=== PATIENT | female | born 1955 | race Caucasian/White ===

== ENCOUNTER 2018-01-09 21:11 | Emergency (ER) | payer OTHER, MEDICAID, SELFPAY | END 2018-01-10 01:05 | disposition home or self-care (01) | PROVIDERS: Emergency Provider Emergency Medicine; Family Provider Family Medicine; PCP Family Medicine; Visit Provider Emergency Medicine | DX: S89.92XA Unspecified injury of left lower leg, initial encounter (principal); X58.XXXA Exposure to other specified factors, initial encounter | CPT/HCPCS: 29505; 73562; 99283 ==

== ENCOUNTER 2018-05-22 11:52 | Day surgery (SDC) | payer OTHER, MEDICAID, SELFPAY ==
[2018-05-22] VITALS (7 sets, daily range): BP systolic 99–109; BP diastolic 62–77; PULSE 63–71; RESP 13–20; TEMP 36.1–36.6; O2SAT 93–99; BMI 30.4
--- NOTE | 2018-05-22 | PATH_ITS ---
[facility] Accession Number: [id number] . 01 Material submitted: . PART A: ANTRAL BIOPSY PART B: GE JUNCTION . 02 Diagnosis: A. Antrum, Biopsy: Gastric antral mucosa with no diagnostic abnormality. No evidence of Helicobacter organisms on H/E stain. Negative for intestinal metaplasia, dysplasia or malignancy. . B. Gastroesophageal Junction, Biopsy: Squamocolumnar junctional mucosa with mild reactive features of reflux esophagitis. No evidence of fungal organisms on PAS stain. Negative for specialized intestinal metaplasia on alcian blue stain. Negative for dysplasia or malignancy. [facility]/05/28/2018 . 02 Electronically signed: . Richard Webber MD, PhD, Pathologist NPI- [id number] . 01 Gross description: . Part A: ANTRAL BIOPSY: Received in formalin are multiple fragment(s) of negro, soft tissue measuring 0.4 x 0.3 x 0.2 cm in aggregate submitted entirely in 1 cassette(s) Part B: GE JUNCTION: Received in formalin are multiple fragment(s) of negro, soft tissue measuring 0.5 x 0.3 x 0.2 cm in aggregate submitted entirely in 1 cassette(s) /CKI /CKI . 02 Microscopic: . Part B: An alcian blue/PAS stain is performed to evaluate for intestinal metaplasia and is negative for goblet cells. A control stain shows appropriate reactivity. There is no evidence of fungal organisms on PAS stain. . 02 Pathologist provided ICD-10: K21.0 . 02 CPT . 515413, [id number], [id number] Performed at: 01 [facility] [address] [place] [address] [address], [place], [place] [id number] MD Hollis Diop MD Phone: [phone] Performed at: 02 [facility] [place] [address] [place] [id number] MD Alfredo Soriano MD Phone: [phone]
[2018-05-22] MEDS: SODIUM CHLORIDE 0.9% 1,000 ML 200 ML IV (12:20)
--- NOTE | 2018-05-22 13:38 | PM.PREOP ---
Pre-operative Note Interval Note Pre-op Check: Yes History & Physical Reviewed by Physician and Yes Exam Performed Changes: No H&P completed within 30 days and has changed as indicated here:: Patient seen and examined today. History physical examination documented April 21, 2018 on the chart has not changed. We will proceed with EGD and biopsy as planned today. ASA Class (for procedural sedation): II
--- NOTE | 2018-05-22 13:52 | PM.OP.ENDO ---
Operative Date/Time/Diagnoses Date of procedure: 05/22/18 Time of procedure: 13:52 Pre-op diagnosis: Epigastric pain and regurgitation Post-op diagnosis: other (Gastritis and esophagitis) Procedure & Clinicians Study performed: 1. Esophagogastroduodenoscopy with cold forceps biopsies 2. Sedation per surgeon Same procedure as scheduled: Yes Indications: 62-year-old female with recent progressive epigastric pain and regurgitation of food substances consistent with uncontrolled reflux disease despite medical management. EGD with biopsy was recommended. Surgeon: Irvin Mcmillan Procedure Notes SCOAP/Timeout: Yes Procedure in detail: After obtaining informed consent, the patient was brought to the GI suite and placed in the left lateral decubitus position on the examination table. After placement of appropriate monitors, the patient was given incremental doses of Versed and Fentanyl until an appropriate level of sedation was achieved. A time out was held per SCOAP protocol. A bite block was gently placed between the patient's teeth. The endoscope was lubricated and then passed into the patient's posterior oropharynx. The esophagus was cannulated under direct vision and the scope was passed to the second portion of the duodenum without difficulty. Patient had retained solid food particles in the stomach and duodenum although she had been NPO status for approximately 14 hr prior to the procedure. The scope was then withdrawn with careful examination of all areas of the upper GI tract and mucosa. In the stomach, the instrument was retroflexed and the GE junction examined. The scope was straightened and the procedure continued with examination of the remainder of the upper GI tract. Findings are noted above. Air was aspirated from the stomach and the endoscope gently removed from the esophagus. The patient was allowed to awaken from sedation without difficulty and taken to the post-anesthesia care unit in good condition. Scope withdrawal time: Not applicable Sedation minutes: 15 Findings: gastritis, hiatal hernia (Small) and other findings (Esophagitis at gastroesophageal junction only with Z-line at 35 cm from incisors) Specimen(s): other (1. Antral biopsies 2. Gastroesophageal junction biopsies) Complications: none Recommendations: Reflux diet, No ASA/NSAIDS and Continue medication(s) Plan for aftercare: 1. Discharge home 2. Follow up in surgery Clinic in 2 weeks 3. She had retained solid food particles in the stomach and duodenum possibly consistent with delayed gastric emptying. She will require gastric emptying study in nuclear medicine. Follow up: weeks (Two weeks) Disposition: PACU
[2018-05-22] MEDS: LIDOCAINE 4% SOLN 50 ML 20 ML TOP (13:57)
[2018-05-22] MEDS: fentaNYL 250 MCG/5 ML INJ IV (13:58)
--- NOTE | 2018-05-22 14:39 | SUR.PHASEII ---
PT ARRIVED TO PHASE II VIA STRETCHER. PT SITTING UP AND APPEARS COMFORTABLE. INTEPEUTER BROUGHT TO BEDSIDE. IV SITE CLEAR AND INFUSING WITHOUT DIFFICULTLY. PT GIVEN BEVERAGE PER HER REQUEST, NO DIFFICULTLY SWALLOWING OBSERVED. PT AWAITING ARRIVAL OF FRIEND AT THIS TIME. BED IN LOWEST POSITION AND CALL LIGHT WITHIN REACH OF PT.
== END 2018-05-22 15:30 | disposition home or self-care (01) ==
PROVIDERS: Family Provider Family Medicine; PCP Family Medicine; Visit Provider Surgery
PROC: 0DJ08ZZ Inspection of Upper Intestinal Tract, Via Natural or Artificial Opening Endoscopic (ICD-10-PCS; CPT 43239; principal; 2018-05-22 13:00)
DX: K21.0 Gastro-esophageal reflux disease with esophagitis (principal); K29.70 Gastritis, unspecified, without bleeding; K44.9 Diaphragmatic hernia without obstruction or gangrene; R11.10 Vomiting, unspecified; F17.210 Nicotine dependence, cigarettes, uncomplicated
CPT/HCPCS: 43239; 88305; 88313; 99152; J3010

== ENCOUNTER → 2018-06-17 07:35 | Outpatient (CLI) | payer OTHER, MEDICAID, SELFPAY ==
--- NOTE | 2018-06-17 07:36 | DI.NM.S_ITS ---
PROCEDURE: NM GASTRIC EMPTYING STUDY RADIOPHARMACEUTICAL: 1.00 mCi Tc-99m sulfur colloid in an egg sandwich. INDICATIONS: epigastric pain, vomiting, normal EGD TECHNIQUE: A Tc-99m labeled sulfur colloid labeled egg sandwich or oatmeal was served to the patient. Anterior and posterior planar images of the abdomen were obtained at 0 minutes and 30 minutes, then at hourly intervals up to 4 hours. The patient was upright and ambulating during the interval. COMPARISON: None. FINDINGS: The stomach has normal size, morphology, and position. There is normal emptying of solid gastric contents from the stomach by visual inspection. No gastroesophageal reflux is visualized. The percentage of tracer retained at specific time points are as follows: Time point Percent gastric retention Normal range 30 minutes 89% 70% or more 1 hour 70% 30% to 90% 2 hours 41% 60% or less 3 hours 22% 30% or less 4 hours 15% 10% or less IMPRESSION: Slight delayed gastric emptying at 4 hours. Dictated by: Bina Plaza MD, PhD on 06/17/2018 at 12:57 Approved by: Bina Plaza MD, PhD on 06/17/2018 at 12:59
== END ==
PROVIDERS: Family Provider Family Medicine; PCP Family Medicine; Visit Provider Surgery
DX: R10.13 Epigastric pain (principal); R11.10 Vomiting, unspecified
CPT/HCPCS: 78264; A9541

== ENCOUNTER → 2018-06-23 10:40 | Outpatient (CLI) | payer OTHER, MEDICAID, SELFPAY ==
--- NOTE | 2018-06-23 10:43 | DI.US.S_ITS ---
PROCEDURE: US ABDOMEN COMPLETE INDICATIONS: EPIGASTRIC PAIN, NAUSEA TECHNIQUE: Real-time scanning was performed of the abdominal and retroperitoneal organs, with image documentation. COMPARISON: [facility], CT, CHEST/ABD/PEL WITH CONTRAST, 05/04/2015, 22:02. FINDINGS: Liver: Liver is diffusely increased in echogenicity. No focal hepatic abnormalities identified. Normal hepatic size. Gallbladder: No gallstones identified. Normal gallbladder wall. No pericholecystic fluid. Negative sonographic Cao sign. Biliary ducts: Intrahepatic bile ducts are non-dilated. Extrahepatic bile duct caliber measures 8.0 mm. Normal is 6-7 mm or less in diameter, or 10 mm or less post-cholecystectomy. Pancreas: Visualized portions of the pancreas are sonographically normal. Spleen: Spleen is normal in size and homogeneous in echotexture. Kidneys: Kidneys are normal in size and echotexture. Right kidney measures 13.7 cm long; left kidney measures 10.5 cm long. No hydronephrosis or nephrolithiasis. No solid masses. 1.4 cm superior pole right renal peripelvic cyst. Prominent right, particularly noted. Aorta: Visualized aorta is normal in caliber at less than 3 cm. Iliacs: Proximal common iliac arteries are normal in caliber at less than 2.5 cm. IVC: Not visualized. Miscellaneous: No free abdominal fluid. IMPRESSION: 1. Increased hepatic echogenicity noted possibly related to hepatic steatosis but other sources of hepatocellular disease cannot be excluded. Recommend clinical correlation. 2. Right renal superior pole parapelvic cyst. 3. Extrahepatic bile duct prominence. Correlate with LFTs. Dictated by: Anoop Santiago [facility] Interpreted: Clayton Veronica MD on 06/23/2018 at 11:35 Approved by: Clayton Veronica M.D. on 06/23/2018 at 13:59
--- NOTE | 2018-07-01 13:06 | PM.PN.1 ---
Subjective Date Patient Seen: 07/01/18 Time Patient Seen: 13:06 Interval history: Patient completed abdominal ultrasound as ordered on June 23, 2018. Objective Labs Labs: Ultrasound images personally reviewed. Report also reviewed. She has no evidence of cholelithiasis or other biliary pathology. Mildly fatty infiltrated liver and benign superior pole renal cyst. Assessment & Plan Plan: Assessment/Plan Narrative: 62-year-old female with epigastric pain consistent with reflux disease as per previous office visit note. Ultrasound does not show any other significant pathology, including biliary pathology. At this point proceed with management of her reflux disease as previously discussed with her. I called her today via telephone to discuss the ultrasound results and review her status. She voiced understanding. All questions were answered to her satisfaction. Proceed with medical management as planned.
== END ==
PROVIDERS: Family Provider Family Medicine; PCP Family Medicine; Visit Provider Surgery
DX: R10.13 Epigastric pain (principal); R11.0 Nausea; N28.1 Cyst of kidney, acquired
CPT/HCPCS: 76700

== ENCOUNTER 2018-07-31 16:07 | Emergency (ER) | payer OTHER, MEDICAID, SELFPAY ==
[2018-07-31 16:27] VITALS: BP 142/89; PULSE 104; RESP 20; TEMP 37; O2SAT 98; BMI 34.4
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
== END 2018-07-31 18:09 | disposition home or self-care (01) ==
PROVIDERS: Emergency Provider Emergency Medicine; Family Provider Family Medicine; PCP Family Medicine
DX: S46.911A Strain of unspecified muscle, fascia and tendon at shoulder and upper arm level, right arm, initial encounter (principal); M25.521 Pain in right elbow; W05.0XXA Fall from non-moving wheelchair, initial encounter
CPT/HCPCS: 73030; 73080; 99283

== ENCOUNTER 2018-11-28 13:45 | Outpatient (CLI) | payer OTHER, MEDICAID, SELFPAY ==
--- NOTE | 2018-11-28 15:34 | PT.OIE ---
Current Diagnoses Restless legs syndrome (11/28/18) Unspecified osteoarthritis, unspecified site (11/28/18) Pain in unspecified shoulder (11/28/18) Pain in right hip (11/28/18) Pain in right knee (11/28/18) Cervicalgia (11/28/18) Dorsalgia, unspecified (11/28/18) Other specified personal risk factors, not elsewhere classified (11/28/18) Past Medical History (Last Reviewed 07/31/18 @ 16:46 by Jacques Marin DO) Gastroesophageal reflux disease (Acute) Hearing impaired (Acute) Hyperlipidemia (Acute) Tobacco use (Acute) Tremors of nervous system (Acute) Chronic pain (Chronic) Clavicle fracture (Resolved) Past Surgical History (Last Reviewed 07/31/18 @ 16:46 by Jacques Marin DO) Previous back surgery (Acute) Provider Visit Care Team Role Provider Type Harpreet Bedolla MD Attending Provider Physician Primary Care Provider Specialty: Family Practice Address: [address] [place] [address], [facility] Email: [email or web address] Physical Therapy Initial Evaluation PT-OP-A Visit Information Start: 11/28/18 15:31 Freq: Status: Active Protocol: Document 11/28/18 15:32 IJS (Rec: 11/28/18 15:34 [id number]) Out-Patient Physical Therapy Visit Information Visit Information Visit Type Initial Evaluation Visit Note Patient seen for power wheelchair evaluation, 1 visit only. See paper chart for documentation.
== END 2018-12-15 13:12 ==
LOC: PHYS 13:46
PROVIDERS: PCP Family Medicine; Visit Provider Family Medicine
DX: M19.90 Unspecified osteoarthritis, unspecified site; Z91.89 Other specified personal risk factors, not elsewhere classified; M25.551 Pain in right hip; M54.9 Dorsalgia, unspecified; M54.2 Cervicalgia; M25.519 Pain in unspecified shoulder; G25.81 Restless legs syndrome; M25.561 Pain in right knee
CPT/HCPCS: 97162

== ENCOUNTER → 2019-05-08 13:29 | Outpatient (CLI) | payer OTHER, MEDICAID, SELFPAY ==
--- NOTE | 2019-05-08 | DI.RAD.S_ITS ---
PROCEDURE: XR KNEE LT 3V INDICATIONS: BILAT KNEE PAIN TECHNIQUE: 3 views of the knee were acquired. COMPARISON: [facility], , KNEE 3V LEFT, 01/09/2018, 22:17. FINDINGS: Bones: No fractures or dislocations. No suspicious bony lesions. Scattered degenerative subchondral sclerosis and spurring. Soft tissues: Trace joint effusion. No suspicious soft tissue calcifications. IMPRESSION: Trace joint effusion. Marked prepatellar soft tissue swelling. This raises the possibility of bursitis. However, grossly unchanged since 01/09/18. If the patient's pain or other symptoms persist, consider further evaluation with MRI Dictated by: Ayan Walter M.D. on 05/08/2019 at 14:09 Approved by: Ayan Walter M.D. on 05/08/2019 at 14:13
--- NOTE | 2019-05-08 | DI.MG.S_ITS ---
BILATERAL DIGITAL SCREENING MAMMOGRAM 3D/2D WITH CAD: 05/08/2019 CLINICAL: Routine screening. Family history of breast cancer. Comparison is made to exams dated: 04/05/2017 mammogram, 05/13/2014 mammogram, and 06/13/2009 mammogram - [facility]. There are scattered fibroglandular elements in both breasts. Current study was also evaluated with a Computer Aided Detection (CAD) system. No significant masses, calcifications, or other findings are seen in either breast. There has been no significant interval change. IMPRESSION: NEGATIVE There is no mammographic evidence of malignancy. A 1 year screening mammogram is recommended. This exam was interpreted at Station ID: [id number]. NOTE: For mammograms, a report in lay terms will be sent to the patient. Approximately 15% of breast malignancies will not be visualized mammographically. In the management of a palpable breast mass, a negative mammogram must not discourage biopsy of a clinically suspicious lesion. Electronically Signed By: Sathish ornelas/shantel:05/08/2019 14:30:32 letter sent: Normal Exam ACR BI-RADS Category 1: Negative 3341F
--- NOTE | 2019-05-08 | DI.RAD.S_ITS ---
PROCEDURE: XR KNEE RT 3V INDICATIONS: BILAT KNEE PAIN TECHNIQUE: 3 views of the knee were acquired. COMPARISON: [facility], , TIB/FIB 2V RIGHT, 03/16/2016, 15:15. [facility], , KNEE 3V LEFT, 01/09/2018, 22:17. FINDINGS: Bones: No fractures or dislocations. No suspicious bony lesions. Scattered degenerative subchondral sclerosis and spurring. Soft tissues: Possible trace joint effusion. Prepatellar soft tissue swelling IMPRESSION: Mild prepatellar soft tissue swelling. No fracture. If the patient's pain or other symptoms persist, consider further evaluation with MRI Dictated by: Ayan Walter M.D. on 05/08/2019 at 15:25 Approved by: Ayan Walter M.D. on 05/08/2019 at 15:27
== END ==
PROVIDERS: Visit Provider Student in an Organized Health Care Education/Training Program
DX: Z12.31 Encounter for screening mammogram for malignant neoplasm of breast (principal); Z80.3 Family history of malignant neoplasm of breast; M25.561 Pain in right knee; M25.562 Pain in left knee; M25.462 Effusion, left knee; M25.461 Effusion, right knee
CPT/HCPCS: 73562; 77063; 77067

== ENCOUNTER → 2019-08-25 14:06 | Outpatient (CLI) | payer OTHER, MEDICAID, SELFPAY | PROVIDERS: PCP Student in an Organized Health Care Education/Training Program; Visit Provider Student in an Organized Health Care Education/Training Program | DX: R06.00 Dyspnea, unspecified (principal); G89.29 Other chronic pain; E66.9 Obesity, unspecified; Z79.899 Other long term (current) drug therapy | CPT/HCPCS: 93005 ==

== ENCOUNTER → 2021-02-09 12:43 | Outpatient (CLI) | payer MEDICARE, MEDICAID, SELFPAY | PROVIDERS: PCP Student in an Organized Health Care Education/Training Program; Referring Provider Student in an Organized Health Care Education/Training Program; Visit Provider Student in an Organized Health Care Education/Training Program | DX: M85.852 Other specified disorders of bone density and structure, left thigh (principal); Z78.0 Asymptomatic menopausal state; F17.200 Nicotine dependence, unspecified, uncomplicated | CPT/HCPCS: 77080 ==

== ENCOUNTER → 2021-05-30 14:45 | Outpatient (CLI) | payer MEDICARE, MEDICAID, SELFPAY ==
--- NOTE | 2021-05-30 | DI.MG.S_ITS ---
BILATERAL DIGITAL SCREENING MAMMOGRAM 3D/2D WITH CAD: 05/30/2021 CLINICAL: Routine screening. Family history of breast cancer. Comparison is made to exams dated: 05/08/2019 mammogram, 04/05/2017 mammogram, and 05/13/2014 mammogram - [facility]. There are scattered fibroglandular elements in both breasts. Current study was also evaluated with a Computer Aided Detection (CAD) system. No significant masses, calcifications, or other findings are seen in either breast. There has been no significant interval change. IMPRESSION: NEGATIVE There is no mammographic evidence of malignancy. A 1 year screening mammogram is recommended. This exam was interpreted at Station ID: [id number]. NOTE: For mammograms, a report in lay terms will be sent to the patient. Approximately 15% of breast malignancies will not be visualized mammographically. In the management of a palpable breast mass, a negative mammogram must not discourage biopsy of a clinically suspicious lesion. Electronically Signed By: Sathish ornelas/shantel:05/30/2021 15:43:49 letter sent: Normal Exam ACR BI-RADS Category 1: Negative 3341F
== END ==
PROVIDERS: PCP Student in an Organized Health Care Education/Training Program; Referring Provider Student in an Organized Health Care Education/Training Program; Visit Provider Student in an Organized Health Care Education/Training Program
DX: Z12.31 Encounter for screening mammogram for malignant neoplasm of breast (principal); Z80.3 Family history of malignant neoplasm of breast
CPT/HCPCS: 77063; 77067

== ENCOUNTER → 2022-03-02 13:32 | Outpatient (CLI) | payer MEDICARE, MEDICAID, SELFPAY ==
--- NOTE | 2022-03-02 | DI.RAD.S_ITS ---
PROCEDURE: XR LUMBAR SPINE 2-3V INDICATIONS: Low back pain, unspecified TECHNIQUE: 3 views of the lumbar spine were acquired. COMPARISON: [facility], , L-SPINE 2-3 VIEWS, 12/02/2007, 22:45. FINDINGS: Bones: 5 [id number] vertebrae are present. There is normal bony alignment. No vertebral body compression fractures. No suspicious bony lesions. Disc space narrowing and facet arthropathy noted in the lower lumbar spine Soft tissues: Overlying bowel gas pattern is normal. Atherosclerotic vascular calcification in the aorta. Lower lumbar spine degenerative disc disease and arthropathy, increased from the prior Approved by: Edi Isbell M.D. on 03/02/2022 at 17:47
== END ==
PROVIDERS: PCP Student in an Organized Health Care Education/Training Program; Referring Provider Student in an Organized Health Care Education/Training Program; Visit Provider Student in an Organized Health Care Education/Training Program
DX: M51.36 Other intervertebral disc degeneration, lumbar region (principal); M47.816 Spondylosis without myelopathy or radiculopathy, lumbar region; M54.50 Low back pain, unspecified
CPT/HCPCS: 72100

== ENCOUNTER → 2022-08-22 13:15 | Outpatient (CLI) | payer MEDICARE, MEDICAID, SELFPAY ==
--- NOTE | 2022-08-22 | DI.RAD.S_ITS ---
PROCEDURE: XR SHOULDER LT MIN 2V INDICATIONS: Impingement syndrome of left shoulder/Cervicalgia TECHNIQUE: Three views of the shoulder were acquired. COMPARISON: [facility], CR, XR SHOULDER RT MIN 2V, 07/31/2018, 16:19. FINDINGS: Bones: There is a hardware plate fixing a prior left clavicle fracture. There are no acute fractures. The acromioclavicular interval appears widened, iatrogenic versus posttraumatic. No distal clavicle elevation. The glenohumeral joint is intact. Mild osteophytosis of the humeral head. Soft tissues: No suspicious soft tissue calcifications. IMPRESSION: 1. AC joint widening, potentially iatrogenic versus remote posttraumatic. 2. Fixed left clavicle fracture. 3. Mild glenohumeral joint degeneration. Dictated by: Angeles Castellanos M.D. on 08/22/2022 at 16:56 Approved by: Angeles Castellanos M.D. on 08/22/2022 at 16:58
--- NOTE | 2022-08-22 | DI.RAD.S_ITS ---
PROCEDURE: XR CERVICAL SPINE 2V OR 3V INDICATIONS: Impingement syndrome of left shoulder/Cervicalgia TECHNIQUE: Four view(s) of the cervical spine were acquired. COMPARISON: [facility], , CLAVICLE LEFT 2 VIEWS, 04/29/2008, 14:31. FINDINGS: Bones: No fractures or dislocations to the C5 level. The lateral masses of C1 appear intact on the odontoid view. Left-sided facet arthropathy at C4-5, and to lesser extent left C5-6. There is moderate disc height loss and endplate spurring at C5-6. No suspicious bony lesions. Soft tissues: No prevertebral soft tissue swelling. IMPRESSION: 1. Limited visualization of the lower cervical spine. 2. Moderate degeneration of the disc and endplates at C5-6. 3. Facet arthropathy at C4-5 may contribute to bony foraminal narrowing. Consider MRI. Dictated by: Angeles Castellanos M.D. on 08/22/2022 at 16:58 Approved by: Angeles Castellanos M.D. on 08/22/2022 at 17:00
== END ==
PROVIDERS: PCP Family Medicine; Referring Provider Registered Nurse; Visit Provider Registered Nurse
DX: M19.012 Primary osteoarthritis, left shoulder (principal); M47.812 Spondylosis without myelopathy or radiculopathy, cervical region; M50.322 Other cervical disc degeneration at C5-C6 level; M75.42 Impingement syndrome of left shoulder
CPT/HCPCS: 72040; 73030

== ENCOUNTER → 2023-07-09 13:54 | Outpatient (CLI) | payer MEDICARE, MEDICAID, SELFPAY ==
--- NOTE | 2023-07-09 | DI.MG.S_ITS ---
BILATERAL DIGITAL SCREENING MAMMOGRAM 3D/2D WITH CAD: 07/09/2023 CLINICAL: Routine screening. Family history of breast cancer. Comparison is made to exams dated: 05/30/2021 mammogram, 05/08/2019 mammogram, 04/05/2017 mammogram, and 05/13/2014 mammogram - [facility]. There are scattered areas of fibroglandular density in both breasts (category b / 25%-50% glandular tissue). Current study was also evaluated with a Computer Aided Detection (CAD) system. No significant masses, calcifications, or other findings are seen in either breast. There has been no significant interval change. IMPRESSION: NEGATIVE There is no mammographic evidence of malignancy. A 1 year screening mammogram is recommended. Based on the Tyrer Cuzick model (a risk assessment model) the patient's lifetime risk is 5.4% and her 10 year risk is 2.8%. According to the ACR, ACS, and NCCN guidelines, an annual breast MRI exam along with mammogram is recommended if the patient's lifetime risk is 20% or greater. This exam was interpreted at Station ID: [id number]. NOTE: For mammograms, a report in lay terms will be sent to the patient. Approximately 15% of breast malignancies will not be visualized mammographically. In the management of a palpable breast mass, a negative mammogram must not discourage biopsy of a clinically suspicious lesion. Electronically Signed By: Juan Antonio ross/shantel:07/09/2023 15:32:11 letter sent: Normal Exam ACR BI-RADS Category 1: Negative 3341F
== END ==
PROVIDERS: PCP Family Medicine; Referring Provider Family Medicine; Visit Provider Family Medicine
DX: Z12.31 Encounter for screening mammogram for malignant neoplasm of breast (principal); Z80.3 Family history of malignant neoplasm of breast
CPT/HCPCS: 77063; 77067